=== PATIENT | female | born 1980 | race Caucasian/White ===

== ENCOUNTER 2020-06-18 13:15 | Observation (INO) ==
[2020-06-18] MEDS ORDERED: ACETAMINOPHEN 325 MG TABLET PO PRN (13:17)
[2020-06-18] MEDS ORDERED: ONDANSETRON 4 MG/2 ML VIAL IV PRN (13:17)
[2020-06-18] MEDS ORDERED: CETIRIZINE 10 MG TABLET PO PRN (13:31)
[2020-06-18] MEDS: BUDESONIDE/FORMOTEROL 160-4.5 INHALER 6 GM INH SCH ×2 (16:50→21:02)
[2020-06-18] MEDS: DEXAMETHASONE 4 MG/1 ML VIAL IV SCH (16:50)
[2020-06-18] MEDS: ENOXAPARIN 40 MG/0.4 ML SYRINGE SUBCUT SCH (16:54)
[2020-06-18] MEDS: cefTRIAXone 1,000 MG in SYRINGE 1 EACH IV SCH (17:07)
[2020-06-18] MEDS: SODIUM CHLORIDE 0.9% 1,000 ML IV SCH (18:25)
[2020-06-18] MEDS ORDERED: LORazepam 1 MG TABLET PO PRN (19:14)
[2020-06-18] MEDS ORDERED: SUMAtriptan 6 MG/0.5 ML VIAL SUBCUT PRN (19:14)
[2020-06-18] MEDS ORDERED: traMADol 50 MG TABLET PO PRN (19:14)
[2020-06-18] MEDS: ATORVASTATIN 10 MG TABLET PO SCH (21:02)
[2020-06-18] MEDS: BENZONATATE 100 MG CAPSULE PO SCH (21:03)
[2020-06-18] MEDS: FAMOTIDINE 20 MG TABLET PO SCH (21:03)
[2020-06-18] MEDS: AMITRIPTYLINE 25 MG TABLET PO SCH (21:04)
[2020-06-18] MEDS: DOCUSATE SODIUM 100 MG CAPSULE PO SCH (21:04)
[2020-06-18] MEDS: IBUPROFEN 600 MG TABLET PO SCH (21:04)
[2020-06-19] MEDS: DEXAMETHASONE 4 MG/1 ML VIAL IV SCH ×2 (03:22→14:36)
[2020-06-19] MEDS: SODIUM CHLORIDE 0.9% 1,000 ML IV SCH (03:23)
[2020-06-19 05:31] LABS: Basophils % 0.2 % (0.0-0.8); Hematocrit 39.2 VOL% (35.7-47.0); Hemoglobin 12.6 GM/DL (12.0-16.0); Immature Granulocytes % 0.5 %; Immature Granulocytes Absolute 0.03 #; Lymphocytes % 17.4 % (21.3-54.2); Mean Corpuscular HGB Conc 32.1 GM/DL (32-36); Mean Corpuscular Volume 87.1 FL (87-102); Mean Platelet Volume 9.3 FL (9.6-12.0); Monocytes % 4.9 % (1.7-12.7); Platelet Count 302 T/CUMM (130-400); Red Cell Distribution Width 12.7 % (9.3-17.3); White Blood Count 5.9 T/CUMM (4-12)
[2020-06-19] MEDS ORDERED: cloNIDine 0.1 MG TABLET PO PRN (08:03)
[2020-06-19] MEDS: AZITHROMYCIN 250 MG TABLET PO SCH (09:34)
[2020-06-19] MEDS: ZINC GLUCONATE 50 MG TABLET PO SCH (09:34)
[2020-06-19] MEDS: ASCORBIC ACID 500 MG TABLET PO SCH (09:34)
[2020-06-19] MEDS: IBUPROFEN 600 MG TABLET PO SCH ×3 (09:35→20:54)
[2020-06-19] MEDS: BENZONATATE 100 MG CAPSULE PO SCH ×2 (09:35→20:54)
[2020-06-19] MEDS: atenoloL 50 MG TABLET PO SCH (09:36)
[2020-06-19] MEDS: DOCUSATE SODIUM 100 MG CAPSULE PO SCH ×2 (09:37→20:54)
[2020-06-19] MEDS: BUDESONIDE/FORMOTEROL 160-4.5 INHALER 6 GM INH SCH ×2 (09:43→20:54)
[2020-06-19] MEDS: FAMOTIDINE 20 MG TABLET PO SCH ×2 (10:36→20:54)
[2020-06-19] MEDS: DEXTROMETHORPHAN ER 6 MG/ML 90 ML/BOTTLE PO PRN ×2 (13:41→20:54)
[2020-06-19] MEDS: ENOXAPARIN 40 MG/0.4 ML SYRINGE SUBCUT SCH (14:36)
[2020-06-19] MEDS: cefTRIAXone 1,000 MG in SYRINGE 1 EACH IV SCH (14:37)
[2020-06-19] MEDS: NON-FORMULARY MEDICATION (Mirabegron [Myrbetriq] 50 mg tablet extended release 24 hr) PO SCH (14:37)
[2020-06-19] MEDS: AMITRIPTYLINE 25 MG TABLET PO SCH (20:54)
[2020-06-19] MEDS: ATORVASTATIN 10 MG TABLET PO SCH (20:54)
[2020-06-19] MEDS ORDERED: ZALEPLON 5 MG CAPSULE PO SCH (21:00)
[2020-06-20] MEDS: DEXAMETHASONE 4 MG/1 ML VIAL IV SCH (03:31)
[2020-06-20 07:36] VITALS: BP 147/88
[2020-06-20] MEDS: FAMOTIDINE 20 MG TABLET PO SCH (08:48)
[2020-06-20] MEDS: ASCORBIC ACID 500 MG TABLET PO SCH (08:48)
[2020-06-20] MEDS: AZITHROMYCIN 250 MG TABLET PO SCH (08:48)
[2020-06-20] MEDS: DOCUSATE SODIUM 100 MG CAPSULE PO SCH (08:48)
[2020-06-20] MEDS: atenoloL 50 MG TABLET PO SCH (08:48)
[2020-06-20] MEDS: BENZONATATE 100 MG CAPSULE PO SCH (08:48)
[2020-06-20] MEDS: IBUPROFEN 600 MG TABLET PO SCH (08:49)
[2020-06-20] MEDS: NON-FORMULARY MEDICATION (Mirabegron [Myrbetriq] 50 mg tablet extended release 24 hr) PO SCH (08:49)
[2020-06-20] MEDS: BUDESONIDE/FORMOTEROL 160-4.5 INHALER 6 GM INH SCH (08:49)
[2020-06-20] MEDS: ZINC GLUCONATE 50 MG TABLET PO SCH (08:50)
[2020-06-20] MEDS: cefTRIAXone 1,000 MG in SYRINGE 1 EACH IV SCH (08:51)
[2020-06-20] MEDS ORDERED: FUROSEMIDE 40 MG/4 ML VIAL IV ONE (08:53)
[2020-06-20] MEDS ORDERED: guaiFENesin/CODEINE 5 ML LIQUID PO ONE (09:00)
== END 2020-06-20 10:27 | disposition home or self-care (01) ==
LOC: N.2E
PROVIDERS: ADMIT Family Medicine; ATTEND Family Medicine